=== PATIENT | female | born 1955 | race Two or more races ===

== ENCOUNTER → 2025-03-15 | Emergency (ER) | payer OTHER ==
[~2025-03-15] VITALS: Ht 167.6 cm; Wt 104.3 kg
[~2025-03-15] MED LIST: ALPRAZOLAM2 MG PO; AMOX-CLAV 875-1 EAC1 PO; ATORVASTATIN CA20 MG PO; BREO ELLIPTA 21 EACH IH; CYCLOBENZAPRINE10 MG PO; ELIQUIS5 MG PO; EZETIMIBE10 MG PO; FAMOTIDINE20 MG PO; LEVOTHYROXINE75 MCG PO; LOSARTAN-HCTZ1 EAC1 PO; METOPROLOL SUCC25 MG PO; MONTELUKAST SOD10 MG PO; NEO-POLYMYXIN-H10 M1 OT; OMEPRAZOLE40 MG PO; PREDNISONE10 M2 PO; SPIRIVA RESPIMAT4 GM IH; SUCRALFATE1 GM/10 ML PO
== END | disposition left against medical advice (07) ==
LOC: ER 12:07
DX: Z53.21 Procedure and treatment not carried out due to patient leaving prior to being seen by health care provider (principal)